=== PATIENT | female | born 2000 | race Caucasian/White ===

== ENCOUNTER → 2022-04-24 | Outpatient (CLI) | payer BC | LOC: COL.RAD 10:44 | DX: N94.6 Dysmenorrhea, unspecified (principal); R14.0 Abdominal distension (gaseous) ==

== ENCOUNTER → 2022-06-26 | Outpatient (CLI) | payer BC | LOC: ZCOL.LAB 12:39 | DX: R19.7 Diarrhea, unspecified (principal) ==